=== PATIENT | male | born 1950 | race Caucasian/White ===

== ENCOUNTER 2023-09-08 04:48 | Emergency (ER) | payer OTHER ==
[~2023-09-08] VITALS: Ht 190.5 cm; Wt 100.7 kg
[2023-09-08 06:05] VITALS: BP 101/69; TEMP 97.7
[2023-09-08] MEDS: ALBUTEROL FS 2.5 MG/3 ML VIAL.NEB NEB ONE (06:26)
[2023-09-08] MEDS ORDERED: ALBUTEROL FS 2.5 MG/3 ML VIAL.NEB ONE (06:29)
[2023-09-08 06:30] VITALS: O2SAT 97
[2023-09-08 06:45] VITALS: O2SAT 100
[2023-09-08] MEDS ORDERED: ALBU18HF2 INH (08:17)
[2023-09-08] MEDS ORDERED: BENZ-13 PO (08:17)
[2023-09-08 08:21] VITALS: O2SAT 100
== END 2023-09-08 08:22 | disposition home or self-care (01) ==
LOC: ER 04:52
DX: R05.9 Cough, unspecified (principal); Z20.822 Contact with and (suspected) exposure to COVID-19
CPT/HCPCS: 71045-TC; 94799-TC